=== PATIENT | female | born 1975 | race Caucasian/White ===

== ENCOUNTER 2021-04-11 09:36 | Emergency (ER) | payer BC, SELFPAY ==
[2021-04-11 10:15] VITALS: BP 124/77; PULSE 76; RESP 17; TEMP 36.8; O2SAT 100; BMI 25.8
--- NOTE | 2021-04-11 11:06 | HMH.EDUTC ---
[facility] Dis[place] Clinical Impression: Encounter for laboratory testing for COVID-19 virus, Viral syndrome Disposition: Home, Self-Care Condition on Discharge: Good Instructions: DI for Viral Syndrome, Benzonatate, DI for COVID-19 (Suspected or Confirmed ), Coronavirus Disease 2019, Preventing the Spread of Coronavirus Discharge Instructions Additional Instructions: *Monitor Temp, Over the counter Motrin or Tylenol as directed/as needed Tylenol every 4 hours and Motrin every 6 hours (as long as your family doctor has told you that you can take it) for fever or pain. and straight to ER if unable to lower temp less than 101.0 after medication given *Warm salt water gargles may help to soothe the throat *Throat Lozenges *Warm fluids like tea with honey may help to soothe the throat *Sleep elevated *Humidifier/Vaporizer Follow up IMMEDIATELY for new or worsening symptoms or no Noticeable improvement over the next 48-72 hours. 911 for difficulty breathing or swallowing You were tested for today for COVID19 your test result should be back in the next 24-48 hours, you may call to the [facility] to see if your test results are back in the next 48 hours [phone] [facility] hours are 9am-9pm You was given a handout with instructions for Self Quarantine and Self isolation for while you wait on test results and what to do if they are positive If you are positive the Health Dept will be contacting you also Make sure to take your Vitamins Vit. C Vit D and Zinc if you can take them Prescriptions: Benzonatate [Tessalon Perle 100mg Cap*] 100 mg PO TID PRN #30 cap PRN Reason: Cough Transmission Status: Pending to [id number] Referrals: Ottoniel Gillis MD [Primary Care Provider] - As needed Forms: Work/School Release Time of Disposition: 11:14 Medical Decision Making - Jalen Inquiry Pt receiving controlled substance: No Jalen was queried for this patient: No Vital Signs: 04/11/21 10:15 04/11/21 11:08 Temperature 98.2 F 98.2 F Temperature Source Oral Pulse Rate 76 Pulse Rate [Right Brachial] 76 Respiratory Rate 17 17 Blood Pressure 124/77 Blood Pressure [Right Arm] 124/77 Blood Pressure Mean [Right Arm] 92 Blood Pressure Source [Right Arm] Automatic Cuff Blood Pressure Position [Right Arm] Sitting 02 Sat by Pulse Oximetry 100 Oxygen Delivery Method Room Air Orders (Tests/Meds): ORDERS Category Date Time Status Covid-19 Nasal PCR ([facility]) Routine Lab 04/11/21 10:11 Received [facility] HPI - General Stated complaint: covid test Time Seen by Provider: 04/11/21 11:06 Mode of Arrival: Ambulatory Source of Information: Patient Limitations: No Limitations Description of Symptoms (Recalled from Triage Doc. by RN): PATIENT C/O CONGESTION, HEADACHE, BODY ACHES, AND LOSS OF TASTE/SMELL. COVID TEST. NO KNOWN EXPOSURE HEENT Symptoms (Recalled from RN notes): Yes Resp Symptoms (Recalled from RN notes): No Skin Symptoms (Recalled from RN notes): No MS Symptoms (Recalled from RN notes): No Functional Status (Recalled from RN notes): WNL - History of Present Illness Provider Complaint: Patient states that she has not felt well for the last couple of days States that she has been having body aches, chills, and nasal congestion with cough and this morning she noticed she couldnt smell her lotion or taste her coffee so she came in to get tested - Related Data Previous Rx's Medication Instructions Recorded Benzonatate [Tessalon Perle 100mg 100 mg PO TID PRN #30 cap 04/11/21 Cap*] Allergies Allergy/AdvReac Type Severity Reaction Status Date / Time No Known Allergies Allergy Verified 10/28/17 12:02 - Worker's Comp Is this a Worker's Comp case?: No [facility] History - Hepatitis A Screen Drug use history?: No High risk sexual behaviors?: No History of sexually transmitted infection?: No Currently employed?: No Childcare worker?: No Do you have indoor plumbing?: Yes Do you have electricity?: Yes Attestati
[2021-04-11 11:08] VITALS: BP 124/77; PULSE 76; RESP 17; TEMP 36.8; O2SAT 100
--- NOTE | 2021-04-11 20:51 | PC.NURSE ---
ATTEMPTED TO CALL PATIENT R/T POSITIVE COVID TEST. NO ANSWER. MESSAGE LEFT TO RETURN PHONE CALL
--- NOTE | 2021-04-11 20:54 | PC.NURSE ---
attempted to call pt about covid test results, no answer
--- NOTE | 2021-04-11 21:01 | PC.NURSE ---
pt notified of positive covid test results
== END 2021-04-11 11:22 | disposition home or self-care (01) ==
PROVIDERS: Emergency Provider Nurse Practitioner; PCP Family Medicine
DX: U07.1 COVID-19 (principal); B34.9 Viral infection, unspecified
CPT/HCPCS: 99202; G0463; U0003

== ENCOUNTER 2022-06-14 08:55 | Emergency (ER) | payer BC, SELFPAY ==
[2022-06-14 09:00] VITALS: BP 134/86; PULSE 101; RESP 18; TEMP 37.2; O2SAT 98; BMI 27.2
--- NOTE | 2022-06-14 09:17 | EXP.UTC ---
Discharge Plan Disposition Patient Disposition: Home, Self-Care Condition: Good Prescriptions Prescriptions: New methylprednisolone [Medrol (Howard)] 4 mg tablets,dose pack See Rx Instructions .Route .COMPLEX 6 Days Qty: 21 0RF Rx Instructions: taper pack; ukbhqwhrrsfqyvs-[id number]-II [Bromfed DM] 2-30-10 mg/5 mL Syrup 10 ml PO Q4H PRN (Reason: Cough) Qty: 240 0RF amoxicillin-pot clavulanate 875-125 mg Tablet 1 tab PO Q12H Qty: 20 0RF No Action benzonatate 100 MG capsule 100 mg PO TID PRN (Reason: Cough) Qty: 30 0RF Referrals Follow up/Referrals: Ottoniel Gillis MD [Primary Care Provider] - See instructions Activity Restrictions/Add. Instructions Additional Instructions/Restrictions: *Monitor Temp, Over the counter Motrin or Tylenol as directed/as needed Tylenol every 4 hours and Motrin every 6 hours (as long as your family doctor has told you that you can take it) for fever or pain. and straight to ER if unable to lower temp less than 101.0 after medication given *Warm salt water gargles may help to soothe the throat *Throat Lozenges? *Warm fluids like tea with honey may help to soothe the throat? *Sleep elevated *Humidifier/Vaporizer *Bromfed may cause drowsiness. Know how it effects you (your child) before driving, caring for small child, or sending your child to school. Not other antihistamines/allergy medications while taking bromfed Your throat swab was sent for culture. Those results are typically sent to your primary care. Be sure to follow up in 2-3 days with your family doctor/primary care physician if no improvement so they can review those result and treat if necessary. If you don?t have a primary care doctor, I recommend you get one but in the mean time, you will have to return to a walk in clinic Follow up IMMEDIATELY for new or worsening symptoms or no Noticeable improvement over the next 48-72 hours. 911 for difficulty breathing or swallowing Clinical Impressions Clinical Impression: Sinusitis Instructions Patient Instructions: Sore Throat, Cough, DI for Sinusitis Discharge ED Provider: [place]igh Anne [facility] [place] General Stated complaint: Congestion, clogged ears, cough Mode of Arrival: Ambulatory Source of Information: Patient Limitations: No Limitations Time Seen by Provider: 06/14/22 09:17 Description of Symptoms (Recalled from Triage Doc. by RN): PATIENT C/O CONGESTION, COUGH, HEADACHE X 4 DAYS AND EARS WERE STOPPED UP THIS MORNING HEENT Symptoms (Recalled from RN notes): Yes Resp Symptoms (Recalled from RN notes): Yes Skin Symptoms (Recalled from RN notes): No MS Symptoms (Recalled from RN notes): No Functional Status (Recalled from RN notes): WNL History of Present Illness Provider Complaint: Patient states that she has been having sinus congestion and pressure, drainage in the back of her throat, cough, and pressure in her ears that has got worse over the last 4-5 days States that her throat feels raw and irritated from the drainage and the cough States that this morning she was still not feeling well so she came in to get checked Related Data Previous Rx's Medication Instructions Recorded benzonatate 100 mg capsule 100 mg PO TID PRN Cough #30 caps 04/11/21 amoxicillin 875 mg-potassium 1 tab PO Q12H #20 tabs 06/14/22 clavulanate 125 mg tablet otvcsmlvvemzbmy-hcjdgdkvvfmtnxx-CF 10 ml PO Q4H PRN Cough #240 mL 06/14/22 2 mg-30 mg-10 mg/5 mL oral syrup (Bromfed DM) methylprednisolone 4 mg tablets in See Rx Instructions .Route 06/14/22 a dose pack (Medrol (Howard)) .COMPLEX 6 days #21 tabs Allergies Allergy/AdvReac Type Severity Reaction Status Date / Time No Known Allergies Allergy Verified 10/28/17 12:02 Worker's Comp Is this a Worker's Comp case?: No [facility] Medical History (Updated 06/14/22 @ 09:36 by Kyleigh Anne APRN) No significant past medical history Social History (Updated 06/14/22 @ 09:14 by Allison Rodrigez
[2022-06-14 09:30] VITALS: BP 134/86; PULSE 101; RESP 18; TEMP 37.2; O2SAT 98
[2022-06-14 09:37] LABS: UTC Strep Screen (Rapid) Negative (Negative)
== END 2022-06-14 09:36 | disposition home or self-care (01) ==
PROVIDERS: Emergency Provider Nurse Practitioner; PCP Family Medicine
DX: J02.9 Acute pharyngitis, unspecified (principal); H92.03 Otalgia, bilateral; R05.9 Cough, unspecified; R50.9 Fever, unspecified; Z79.52 Long term (current) use of systemic steroids
CPT/HCPCS: 87880; 99213; G0463

== ENCOUNTER → 2022-07-07 14:19 | Outpatient (CLI) | payer BC, SELFPAY ==
--- NOTE | 2022-07-07 14:21 | MM_ITS ---
PROCEDURE INFORMATION: Exam: Bilateral Screening 3D Mammography Exam date and time: 07/07/2022 2:26 PM Age: 46 years old Clinical indication: Screening examination TECHNIQUE: Imaging protocol: Bilateral Screening tomosynthesis and 2D mammography including computer-aided detection (CAD) when performed. COMPARISON: [facility]ESSA DIGITAL SCREEN W OR WO CAD BILATERAL 05/21/2021 10:55 AM FINDINGS: MAMMOGRAPHY: Breast composition: The breasts are heterogeneously dense, which may obscure small masses. Mass: None. Architectural distortion: None. Calcifications: No suspicious calcifications. Asymmetric density: None. Skin thickening: None. Axillary adenopathy: None. IMPRESSION: No mammographic evidence of malignancy. Annual screening is recommended unless otherwise clinically indicated. ASSESSMENT: BI-RADS Category 1: Negative
== END ==
PROVIDERS: PCP Family Medicine; Visit Provider Family Medicine
DX: Z12.31 Encounter for screening mammogram for malignant neoplasm of breast (principal)
CPT/HCPCS: 77063; 77067

== ENCOUNTER → 2022-12-16 09:19 | Outpatient (CLI) | payer BC, SELFPAY ==
--- NOTE | 2022-12-16 09:19 | US_ITS ---
FINAL REPORT CLINICAL HISTORY: dub FINDINGS: Transvaginal sonographic images of the pelvis were obtained. The uterus measures 8.5 x 5.2 x 4.7 cm. The endometrium measures 3 mm, which is within normal limits. There are several uterine fibroids measuring up to 1.4 cm. The right ovary measures up to 1.6 cm and left ovary measures is not visualized. Normal blood flow seen to the ovaries. There is no evidence of free fluid. IMPRESSION: Several uterine fibroids. Reviewed, Interpreted and Dictated by Elvis Mcguire III, MD Transcribed by Cydney Quijano Authenticated and [facility]
== END ==
PROVIDERS: PCP Family Medicine; Visit Provider Obstetrics & Gynecology
DX: N93.8 Other specified abnormal uterine and vaginal bleeding (principal)
CPT/HCPCS: 76830

== ENCOUNTER → 2022-12-16 10:15 | Outpatient (CLI) | payer BC, SELFPAY ==
[2022-12-16 11:52] LABS: Thyroid Stimulating Hormone 2.35 uIU/mL (0.465-4.68)
== END ==
PROVIDERS: PCP Family Medicine; Visit Provider Obstetrics & Gynecology
DX: N93.8 Other specified abnormal uterine and vaginal bleeding (principal)
CPT/HCPCS: 36415; 84443

== ENCOUNTER 2024-04-04 08:15 | Emergency (ER) | payer BC, SELFPAY ==
[2024-04-04 08:25] VITALS: BP 134/70; PULSE 92; RESP 18; TEMP 36.8; O2SAT 98; BMI 24.7
--- NOTE | 2024-04-04 08:31 | EXP.UTC ---
Discharge Plan Disposition Patient Disposition: Home, Self-Care Condition: Good Prescriptions Prescriptions: New prednisone 10 mg tablet 10 mg PO BID 3 Days Qty: 6 0RF amoxicillin 875 mg tablet 875 mg PO Q12H Qty: 20 0RF Referrals Follow up/Referrals: Ottoniel Gillis MD [Primary Care Provider] - See instructions Activity Restrictions/Add. Instructions Additional Instructions/Restrictions: Drink plenty of fluids. Take tylenol or ibuprofen for pain or fever. Take the medications as directed. Follow up with your regular doctor. GO TO THE ER FOR ANY WORSENING SYMPTOMS Clinical Impressions Clinical Impression: Pharyngitis Stand Alone Forms Stand Alone Forms: Work/School Release Instructions Patient Instructions: Sore Throat, DI for Pharyngitis/Tonsillopharyngitis -- Adult Print Language Print Language: Mongolian Discharge ED Provider: Kostas Celestin [facility] General Stated complaint: sore throat Time Seen by Provider: 04/04/24 08:31 History of Present Illness Provider Complaint: She states that for the past 3 days she has had worsening sore throat and malaise. Related Data Previous Rx's ?Medication ?Instructions ?Recorded amoxicillin 875 mg tablet 875 mg PO Q12H #20 tabs 04/04/24 prednisone 10 mg tablet 10 mg PO BID 3 days #6 tabs 04/04/24 Allergies Allergy/AdvReac Type Severity Reaction Status Date / Time No Known Allergies Allergy Verified 12/11/22 08:33 [facility] Disclaimer: The information contained in this section may have been updated after the patient was seen, as this information can be updated by other users. Medical History Abnormal uterine bleeding No significant past medical history Perimenopausal vasomotor symptoms Surgical History History of surgery Left fallopian tube salpingectomy Hx of tubal ligation Essure coils placed in 2016 [place] teeth extracted Social History Smoking Status: Never smoker alcohol intake: never current occupational status: other Travel in the last 8 weeks: None ROS Obtained: Yes All systems reviewed & no additional complaints except as documented Constitutional Constitutional: Reports chills and Reports fever(s) Eyes Eyes: Denies eye discharge ENT Ears, Nose, Mouth, and Throat: Reports as per HPI Cardiovascular Cardiovascular: Denies chest pain Respiratory Respiratory: Denies chest congestion and Reports cough Gastrointestinal Gastrointestingal: Reports nausea; Denies abdominal pain, constipation, cramping, diarrhea or vomiting Musculoskeletal Musculoskeletal: Denies arthralgias Integumentary/Breasts Skin/Breast: Denies rash Neurologic Neurologic: Denies paresthesias Physical Exam General General appearance: alert and in no apparent distress Head Head exam: atraumatic, normocephalic and normal inspection Eye Eye exam: Present normal appearance, PERRL and EOMI ENT ENT exam: Present mucous membranes moist and normal external ear exam Expanded ENT Exam TM/Canal exam: Bilateral TM: erythema and bulging Nose exam: Absent sinus tenderness Mouth exam: Present normal external inspection; Absent drooling Teeth exam: Present normal inspection Throat exam: Present tonsillar erythema, tonsillomegaly and tonsillar exudate Neck Neck exam: Present normal inspection, full ROM and trachea midline; Absent tenderness, meningismus or lymphadenopathy Chest Chest inspection: Present normal inspection and symmetric chest wall rise; Absent tenderness Respiratory Respiratory exam: Present normal lung sounds bilaterally; Absent respiratory distress, wheezes, stridor or accessory muscle use Cardiovascular Cardiovascular exam: Present regular rate and normal rhythm; Absent systolic murmur or diastolic murmur Abdominal Exam Abdominal exam: Present soft and normal bowel sounds; Absent distention, tenderness, guarding, rebound or rigidity Extremities Exam Extremities exam: Present normal inspection and normal capillary refill; Absent calf tenderness Back Exam Back exam: Present normal inspection and full ROM; Absent tenderness, CVA tenderness (R) or CVA tenderness (L) Neurological Exam Neurological exam: Present alert, oriented X3 and CN II-XII intact Psychiatric Psychiatric exam: Present normal affect and normal mood Skin Skin exam: Present warm, dry, intact and normal color Medical Decision Making Medical Records Medical records reviewed: No I reviewed the patient's medical records. Jalen Inquiry Pt receiving controlled substance: No Lab Data Lab results reviewed: Yes I reviewed the patient's lab results.
[2024-04-04 08:46] LABS: UTC Strep Screen (Rapid) Negative (Negative)
[2024-04-04 08:57] VITALS: BP 134/70; PULSE 92; RESP 18; TEMP 36.8; O2SAT 98
== END 2024-04-04 09:00 | disposition home or self-care (01) ==
PROVIDERS: Emergency Provider Nurse Practitioner Family; PCP Family Medicine
DX: J02.9 Acute pharyngitis, unspecified (principal)
CPT/HCPCS: 87880; 99212; 99214; G0463